=== PATIENT | female | born 1960 | race Caucasian/White ===

== ENCOUNTER 2022-09-23 18:29 | Emergency (ER) | payer OTHER, SELFPAY ==
--- NOTE | ~2022-09-23 | XR_ITS ---
EXAM: XR wrist LT min 3V, XR forearm LT 2V DATE: 09/23/2022 20:18 (accession [id number]), 09/23/2022 20:17 (accession [id number]) HISTORY: fall, pain . COMPARISON: None available. FINDINGS: Normal mineralization. No fracture or dislocation. No lytic or blastic lesion. Joint space s are maintained. No erosion or periosteal change. Soft tissues within normal limits. IMPRESSION: No acute osseous finding in the left wrist or forearm. Reviewed, dictated and finalized at location K. IMPRESSION: No acute osseous finding in the left wrist or forearm.
[2022-09-23 18:32] VITALS: BP 172/96; PULSE 77; RESP 18; TEMP 36.6; O2SAT 100
--- NOTE | 2022-09-23 22:16 | ED.FALL ---
HPI - Fall General Chief Complaint: Fall Stated Complaint: fall and Left wrist pain Time Seen by Provider: 09/23/22 21:49 History of Present Illness HPI Narrative: Patient is a 61-year-old female here for evaluation after a fall today. Patient states that she was ambulating in her usual state of health in a parking lot when she stepped into a hole and tripped and fell with her left hand outstretched. She did scrape her face against the concrete but denies loss of consciousness. She does not take blood thinner medicines. Since the fall she has had left arm pain and swelling, reports heaviness in her elbow. She denies any headache, neck pain, chest pain, or other injury sustained in the fall. Related Data Allergies Allergy/AdvReac Type Severity Reaction Status Date / Time No Known Allergies Allergy Verified 09/23/22 22:26 Review of Systems Review of Systems: Gen.: Denies fevers or chills Eyes: Denies eye pain or visual change ENT: Denies congestion Respiratory: Denies shortness of breath or cough CV: Denies chest pain or palpitations GI: Denies abdominal pain nausea, emesis or diarrhea denies burning, urgency, frequency or hematuria Musculoskeletal: reports right arm pain Neuro: Denies numbness, tingling, weakness or focal weakness Skin: Denies rash Except as documented, all other systems reviewed and negative Exam Narrative: APPEARANCE: Well appearing, no pain in distress, well-nourished. Head: There is a very small scab at the tip of the nose with no active bleeding and a small pinpoint area of bleeding to her left upper lip. EYES: PERRLA/EOMI, conjunctivae clear NOSE: No nasal drainage EARS: External ear normal in appearance THROAT: There is a irregular small laceration to the right vermilion border of the upper lip with no active bleeding. The laceration is not through and through. NECK: Supple. No adenopathy, no masses. RESPIRATORY: Airway patent, respirations nonlabored. Clear to auscultation bilaterally, no rales, rhonchi, wheezing. CARDIOVASCULAR: Regular rate and rhythm without murmurs, rubs, or gallops. ABDOMINAL: Normoactive bowel sounds. Soft, nontender, nondistended. No rebound tenderness or guarding. MUSCULOSKELETAL: There is tenderness to palpation to the lateral aspect of the left forearm. There is no overlying hematoma. There is no bony tenderness to palpation along the left clavicle, olecranon, wrist. NEURO: Normal speech. No focal neurologic deficits. SKIN: Small abrasion to his right knee with no active bleeding PSYCHIATRIC: Normal affect/mood. Course Vital Signs Vital signs: Vital Signs Temperature 97.8 F 09/23/22 18:32 Pulse Rate 77 09/23/22 18:32 Respiratory Rate 18 09/23/22 18:32 Blood Pressure 172/96 H 09/23/22 18:32 Pulse Oximetry 100 09/23/22 18:32 Oxygen Delivery Room Air 09/23/22 18:32 Temperature 97.8 F 09/23/22 18:32 Pulse Rate 76 09/23/22 22:53 Respiratory Rate 18 09/23/22 22:53 Blood Pressure 167/86 H 09/23/22 22:53 Pulse Oximetry 98 09/23/22 22:53 Oxygen Delivery Room Air 09/23/22 18:32 MDM - Fall MDM Narrative Medical decision making narrative: 61-year-old female here for evaluation after a fall this evening complaining of pain to her left arm. X-rays are negative for acute findings. Her exam is reassuring, compartments are soft, neurovascular intact distal to the area of pain. Patient was reassured, advised supportive measures, PMD follow-up. We discussed return precautions and she voiced understanding. Discharge Plan Discharge Clinical Impression: Contusion of forearm Patient Disposition: Home, Self-Care Condition: Stable Instructions: Antibiotic Form, Contusion in Adults (ED) Additional Instructions: Your x-ray showed no acute fractures or dislocations. You likely have a contusion. Please follow-up with your primary care doctor next week. Return to emergency department if you are worse, you develo
[2022-09-23] MEDS: ACETAMINOPHEN 325 MG TABLET 650 MG PO (22:26)
[2022-09-23 22:53] VITALS: BP 167/86; PULSE 76; RESP 18; O2SAT 98
== END 2022-09-23 22:57 | disposition home or self-care (01) ==
PROVIDERS: Emergency Provider Physician Assistant
DX: S50.12XA Contusion of left forearm, initial encounter (principal); W01.0XXA Fall on same level from slipping, tripping and stumbling without subsequent striking against object, initial encounter
CPT/HCPCS: 73090; 73110; 99283; A9270